=== PATIENT | female | born 1985 | race Caucasian/White ===

== ENCOUNTER 2018-04-22 16:12 | Emergency (ER) | payer SELFPAY ==
[~2018-04-22] VITALS: Ht 160 cm; Wt 71.7 kg
[2018-04-22 16:17] VITALS: BP 112/75; Ht 160 cm; Wt 71.7 kg
== END 2018-04-22 18:00 | disposition home or self-care (01) ==
LOC: ED 16:12
DX: L03.116 Cellulitis of left lower limb (principal)
CPT/HCPCS: J1885; J7512

== ENCOUNTER 2018-04-26 00:53 | Emergency (ER) | payer SELFPAY ==
[~2018-04-26] VITALS: Ht 162.6 cm; Wt 74.8 kg
[2018-04-26 01:11] VITALS: Ht 162.6 cm; Wt 74.8 kg
[2018-04-26 05:47] VITALS: BP 139/80
== END 2018-04-26 05:47 | disposition home or self-care (01) ==
LOC: ED 00:53
DX: L02.31 Cutaneous abscess of buttock (principal)
CPT/HCPCS: J2001; J2704; J3010; J7030

== ENCOUNTER 2018-04-27 16:30 | Emergency (ER) | payer SELFPAY ==
[~2018-04-27] VITALS: Ht 160 cm; Wt 73.0 kg
[2018-04-27 16:36] VITALS: Ht 160 cm; Wt 73.0 kg
[2018-04-27 17:27] VITALS: BP 117/65
== END 2018-04-27 17:27 | disposition home or self-care (01) ==
LOC: ED 16:30
DX: Z48.01 Encounter for change or removal of surgical wound dressing (principal)

== ENCOUNTER 2018-04-30 19:19 | Emergency (ER) | payer SELFPAY ==
[~2018-04-30] VITALS: Ht 160 cm; Wt 72.1 kg
[2018-04-30 19:42] VITALS: Ht 160 cm; Wt 72.1 kg
[2018-04-30 22:13] VITALS: BP 133/73
== END 2018-04-30 22:13 | disposition home or self-care (01) ==
LOC: ED 19:19
DX: Z48.01 Encounter for change or removal of surgical wound dressing (principal)
CPT/HCPCS: J2001

== ENCOUNTER 2018-05-05 20:36 | Emergency (ER) | payer SELFPAY ==
[~2018-05-05] VITALS: Ht 162.6 cm; Wt 71.2 kg
[2018-05-05 20:59] VITALS: Ht 162.6 cm; Wt 71.2 kg
[2018-05-06 00:10] VITALS: BP 108/72
== END 2018-05-06 00:10 | disposition home or self-care (01) ==
LOC: ED 20:36
DX: Z48.01 Encounter for change or removal of surgical wound dressing (principal)